=== PATIENT | female | born 1995 | race Caucasian/White ===

== ENCOUNTER 2016-11-28 07:29 | Inpatient (IN) | payer OTHER ==
[2016-11-28] MEDS ORDERED: Dinoprostone* 10 MG VAG.SUPP VAGINAL ONE (08:17)
[2016-11-29] MEDS ORDERED: Oxytocin in LR* 20 UNITS/1,000 ML BAG IVPB ONE (02:23)
[2016-11-29] MEDS ORDERED: Oxytocin in LR* 20 UNITS/1,000 ML BAG IVPB SCH ×2 (03:00→13:00)
[2016-11-29 03:03] LABS: Hematocrit 42 % (35-47); Hemoglobin 13.9 g/dl (12.0-16.0); Mean Corpuscular HGB Conc 33 g/dl (31-36); Mean Corpuscular Hemoglobin 31 pg (27-31); Mean Corpuscular Volume 94 fL (80-97); Mean Platelet Volume 12 um3 (7.4-10.4); Red Blood Count 4.47 10^6/ul (4.0-5.4); Red Cell Distribution Width 13 % (10.5-15); White Blood Count 10.4 10^3/ul (3.5-10.8)
[2016-11-29] MEDS ORDERED: Acetaminophen TAB* 325 MG PO PRN (12:15)
[2016-11-29] MEDS ORDERED: Witch Hazel PAD* JAR TOPICAL PRN (12:15)
[2016-11-29] MEDS ORDERED: Glycerin ADULT SUPP PR PRN (12:15)
[2016-11-29] MEDS ORDERED: oxyCODONE/Acetamin 5/325 MG* TAB PO PRN (12:15)
[2016-11-29] MEDS ORDERED: Dibucaine 1% 28.35 GM TUBE PR PRN (12:15)
[2016-11-29] MEDS ORDERED: Simethicone CHEW TAB* 80 MG PO SCH (12:30)
[2016-11-29] MEDS ORDERED: Misoprostol TAB* 200 MCG ONE (13:14)
[2016-11-29 13:29] LABS: Hematocrit 41 % (35-47); Hemoglobin 13.7 g/dl (12.0-16.0); Mean Corpuscular HGB Conc 34 g/dl (31-36); Mean Corpuscular Hemoglobin 32 pg (27-31); Mean Corpuscular Volume 94 fL (80-97); Mean Platelet Volume 12 um3 (7.4-10.4); Red Blood Count 4.34 10^6/ul (4.0-5.4); Red Cell Distribution Width 13 % (10.5-15)
[2016-11-29 13:53] LABS: EGFR African American 142.7 (>60)
[2016-11-29] MEDS: Heparin VIAL(*) 5000 UNITS/ML VIAL (FIVE THOUSAND) SUBCUT SCH ×2 (14:12→21:48)
[2016-11-29] MEDS: Docusate CAP* 100 MG PO SCH ×2 (14:24→21:48)
[2016-11-29] MEDS: Ibuprofen TAB* 600 MG PO PRN (21:48)
[2016-11-30 07:36] LABS: Hematocrit 37 % (35-47); Hemoglobin 12.4 g/dl (12.0-16.0); Mean Corpuscular HGB Conc 34 g/dl (31-36); Mean Corpuscular Hemoglobin 31 pg (27-31); Mean Corpuscular Volume 93 fL (80-97); Mean Platelet Volume 11 um3 (7.4-10.4); Red Blood Count 3.97 10^6/ul (4.0-5.4); Red Cell Distribution Width 14 % (10.5-15); White Blood Count 12.8 10^3/ul (3.5-10.8)
[2016-11-30] MEDS: Heparin VIAL(*) 5000 UNITS/ML VIAL (FIVE THOUSAND) SUBCUT SCH ×2 (08:59→21:19)
[2016-11-30] MEDS: Docusate CAP* 100 MG PO SCH ×3 (08:59→21:19)
[2016-11-30] MEDS: Ferrous Gluconate TAB* 324 MG TAB PO SCH ×2 (09:01→21:23)
[2016-11-30] MEDS: Ibuprofen TAB* 600 MG PO PRN (21:23)
[2016-12-01] MEDS: Heparin VIAL(*) 5000 UNITS/ML VIAL (FIVE THOUSAND) SUBCUT SCH (09:37)
[2016-12-01] MEDS: Docusate CAP* 100 MG PO SCH (09:39)
[2016-12-01] MEDS: Ferrous Gluconate TAB* 324 MG TAB PO SCH (09:41)
[2016-12-01 10:14] VITALS: BP 120/58
== END 2016-12-01 12:01 | disposition home or self-care (01) | DRG 775 ==
LOC: MCHOBOUT 07:29 → MCHOB 08:17
PROVIDERS: ADMIT Obstetrics & Gynecology; ATTEND Midwife
PROC: 10E0XZZ Delivery of Products of Conception, External Approach (ICD-10-PCS; principal; 2016-11-29)
PROC: 10907ZC Drainage of Amniotic Fluid, Therapeutic from Products of Conception, Via Natural or Artificial Opening (ICD-10-PCS; 2016-11-29)
PROC: 3E033VJ Introduction of Other Hormone into Peripheral Vein, Percutaneous Approach (ICD-10-PCS; 2016-11-29)
DX: O99.344 Other mental disorders complicating childbirth (principal); F31.9 Bipolar disorder, unspecified; Z3A.38 38 weeks gestation of pregnancy; Z37.0 Single live birth; Z86.73 Personal history of transient ischemic attack (TIA), and cerebral infarction without residual deficits; Z79.01 Long term (current) use of anticoagulants
CPT/HCPCS: 36415; 59200; 82565; 84520; 85025; 85610; 85730; 86850; 86900; 86901; A9270-GY; J1644

== ENCOUNTER 2016-12-06 14:03 | Emergency (ER) | payer OTHER ==
[2016-12-06 16:00] LABS: Hematocrit 41 % (35-47); Hemoglobin 13.6 g/dl (12.0-16.0); Mean Corpuscular HGB Conc 33 g/dl (31-36); Mean Corpuscular Hemoglobin 31 pg (27-31); Mean Corpuscular Volume 94 fL (80-97); Mean Platelet Volume 9 um3 (7.4-10.4); Red Blood Count 4.34 10^6/ul (4.0-5.4); Red Cell Distribution Width 14 % (10.5-15); White Blood Count 11.1 10^3/ul (3.5-10.8)
[2016-12-06 16:17] LABS: Albumin 3.7 g/dL (3.2-5.2); BUN/Creatinine Ratio 17.2 (8-20); C Reactive Protein 72.64 mg/L (< 5.00); Calcium 9.4 mg/dL (8.6-10.3); EGFR African American 147.9 (>60); Globulin 3.7 g/dL (2-4); Potassium 3.9 mmol/L (3.5-5.0); Total Bilirubin 0.8 mg/dL (0.2-1.0); Total Protein 7.4 g/dL (6.4-8.9)
[2016-12-06 17:06] LABS: Urine Bacteria Absent (Absent); Urine Bilirubin Negative (Negative); Urine Glucose Negative (Negative); Urine Nitrite Negative (Negative)
--- NOTE | 2016-12-06 17:36 | RAD ---
Indication: One-week , adnexal pain. Real-time sonography of the pelvis was performed. The uterus measures 14.4 x 8.3 x 9.7 cm. The endometrial echo measures up to 17 mm with echo complex material in the endometrium which may represent hemorrhage. Right ovary measures 2.4 x 1.0 x 1.8 cm. Left ovary measures 2.1 x 1.5 x 2.0 cm. IMPRESSION: Echo complex endometrium measuring up to 17 mm likely representing some hemorrhage as there is no flow detected. No adnexal masses are noted.
[2016-12-06 19:24] VITALS: BP 114/68
--- NOTE | 2016-12-06 22:23 | ED ---
Serenity Eagle Alfonso, scribed for Alberto Flores MD on 12/06/16 at 1529 . Abdominal Pain/Female - HPI Summary HPI Summary: This patient is a 21 year old F presenting to [facility] accompanied by mother and with a chief complaint of abdominal cramping since earlier today. The patient rates the pain 7/10 in severity. Symptoms aggravated by nothing. Symptoms alleviated by nothing. Patient reports fever, chills, and vaginal bleeding. Patient gave one week ago. A0. PMHx of CVA and bipolar. - History of Current Complaint Chief Complaint: EDAbdPain Stated Complaint: ABD PAIN/1WK POST Time Seen by Provider: 12/06/16 15:04 Hx Obtained From: Patient Onset/Duration: Sudden Onset, Lasting Hours - Earlier today, Still Present Timing: Constant Severity Initially: Moderate Severity Currently: Moderate Pain Intensity: 7 Pain Scale Used: 0-10 Numeric Location: Diffuse Aggravating Factor(s): Nothing Alleviating Factor(s): Nothing Associated Signs and Symptoms: Positive: Other: - fever, chills, and vaginal bleeding Allergies/Adverse Reactions: Allergies Allergy/AdvReac Type Severity Reaction Status Date / Time No Known Allergies Allergy Verified 12/06/16 17:00 PMH/Surg Hx/FS Hx/Imm Hx Neurological History: Reports: Hx CVA Psychiatric History: Reports: Other Psychiatric Issues/Disorders - Bipolar, on zoloft Infectious Disease History: Denies: Traveled Outside the [place] in Last 30 Days - Family History Known Family History: Negative: Cardiac Disease, Diabetes - Social History Alcohol Use: None Substance Use Type: Reports: None Smoking Status (MU): Never Smoked Tobacco Have You Smoked in the Last Year: No Review of Systems Positive: Fever, Chills Positive: Abdominal Pain - cramping Positive: other - Vaginal bleeding All Other Systems Reviewed And Are Negative: Yes Physical Exam Triage Information Reviewed: Yes Vital Signs On Initial Exam: Initial Vitals Temp Pulse Resp BP Pulse Ox 98.6 F 90 20 125/75 98 12/06/16 14:12 12/06/16 14:12 12/06/16 14:12 12/06/16 14:12 12/06/16 14:12 Vital Signs Reviewed: Yes Appearance: Positive: Well-Appearing, No Pain Distress Skin: Positive: Warm, Skin Color Reflects Adequate Perfusion, Dry Head/Face: Positive: Normal Head/Face Inspection Eyes: Positive: Normal ENT: Positive: Normal ENT inspection Neck: Positive: Supple, Nontender Respiratory/Lung Sounds: Positive: Clear to Auscultation, Breath Sounds Present Cardiovascular: Positive: RRR Abdomen Description: Positive: Soft, Other: - Bilateral lower quadrant tenderness with mild rebound Bowel Sounds: Positive: Present Musculoskeletal: Positive: Normal Neurological: Positive: Normal, Sensory/Motor Intact, Alert, Oriented to Person Place, Time, CN Intact II-III Psychiatric: Positive: Affect/Mood Appropriate Diagnostics - Vital Signs Vital Signs Temp Pulse Resp BP Pulse Ox 12/06/16 14:12 98.6 F 90 20 125/75 98 - Laboratory Lab Results: Lab Results 12/06/16 12/06/16 12/06/16 Range/Units 15:52 15:52 15:52 WBC 11.1 H (3.5-10.8) 10^3/ul RBC 4.34 (4.0-5.4) 10^6/ul Hgb 13.6 (12.0-16.0) g/dl Hct 41 (35-47) % MCV 94 (80-97) fL MCH 31 (27-31) pg MCHC 33 (31-36) g/dl RDW 14 (10.5-15) % Plt Count 275 (150-450) 10^3/ul MPV 9 (7.4-10.4) um3 Neut % (Auto) 64.8 (38-83) % Lymph % (Auto) 23.2 L (25-47) % [place] % (Auto) 7.2 (1-9) % Eos % (Auto) 3.8 (0-6) % Baso % (Auto) 1.0 (0-2) % Absolute Neuts (auto) 7.2 (1.5-7.7) 10^3/ul Absolute Lymphs (auto) 2.6 (1.0-4.8) 10^3/ul Absolute Monos (auto) 0.8 (0-0.8) 10^3/ul Absolute Eos (auto) 0.4 (0-0.6) 10^3/ul Absolute Basos (auto) 0.1 (0-0.2) 10^3/ul Absolute Nucleated RBC 0 10^3/ul Nucleated RBC % 0 INR (Anticoag Therapy) (0.89-1.11) Sodium 137 (133-145) mmol/L Potassium 3.9 (3.5-5.0) mmol/L Chloride 102 (101-111) mmol/L Carbon Dioxide 24 (22-32) mmol/L Anion Gap 11 (2-11) mmol/L BUN 11 (6-24) mg/dL Creatinine 0.64 (0.51-0.95) mg/dL Est GFR ( Amer) 147.9 (>60) Est GFR (Non-Af Amer) 115.0 (>60) BUN/Creatinine Ratio 17.2 (8-20) Glucose 73 (70-100) mg/dL Lactic Acid 0.9 (0.5-2.0) mmol/L Calcium 9.4 (8.6-10.3) mg/dL Total Bilirubin 0.80 (0.2-1.0) mg/dL AST 14 (13-39) U/L ALT 21 (7-52) U/L Alkaline Phosphatase 106 H (34-104) U/L C-Reactive Protein 72.64 H (< 5.00) mg/L Total Protein 7.4 (6.4-8.9) g/dL Albumin 3.7 (3.2-5.2) g/dL Globulin 3.7 (2-4) g/dL Albumin/Globulin Ratio 1.0 (1-3) Lipase 13 (11.0-82.0) U/L Urine Color Urine Appearance Urine pH (5-9) Ur Specific [place] (1.010-1.030) Urine Protein (Negative) Urine Ketones (Negative) Urine Blood (Negative) Urine Nitrate (Negative) Urine Bilirubin (Negative) Urine Urobilinogen (Negative) Ur Leukocyte Esterase (Negative) Urine WBC (Auto) (Absent) Urine RBC (Auto) (Absent) Ur Squamous Epith Cells (Absent) Urine Bacteria (Absent) Urine Glucose (Negative) 12/06/16 12/06/16 Range/Units 15:52 16:52 WBC (3.5-10.8) 10^3/ul RBC (4.0-5.4) 10^6/ul Hgb (12.0-16.0) g/dl Hct (35-47) % MCV (80-97) fL MCH (27-31) pg MCHC (31-36) g/dl RDW (10.5-15) % Plt Count (150-450) 10^3/ul MPV (7.4-10.4) um3 Neut % (Auto) (38-83) % Lymph % (Auto) (25-47) % [place] % (Auto) (1-9) % Eos % (Auto) (0-6) % Baso % (Auto) (0-2) % Absolute Neuts (auto) (1.5-7.7) 10^3/ul Absolute Lymphs (auto) (1.0-4.8) 10^3/ul Absolute Monos (auto) (0-0.8) 10^3/ul Absolute Eos (auto) (0-0.6) 10^3/ul Absolute Basos (auto) (0-0.2) 10^3/ul Absolute Nucleated RBC 10^3/ul Nucleated RBC % INR (Anticoag Therapy) 0.91 (0.89-1.11) Sodium (133-145) mmol/L Potassium (3.5-5.0) mmol/L Chloride (101-111) mmol/L Carbon Dioxide (22-32) mmol/L Anion Gap (2-11) mmol/L BUN (6-24) mg/dL Creatinine (0.51-0.95) mg/dL Est GFR ( Amer) (>60) Est GFR (Non-Af Amer) (>60) BUN/Creatinine Ratio (8-20) Glucose (70-100) mg/dL Lactic Acid (0.5-2.0) mmol/L Calcium (8.6-10.3) mg/dL Total Bilirubin (0.2-1.0) mg/dL AST (13-39) U/L ALT (7-52) U/L Alkaline Phosphatase (34-104) U/L C-Reactive Protein (< 5.00) mg/L Total Protein (6.4-8.9) g/dL Albumin (3.2-5.2) g/dL Globulin (2-4) g/dL Albumin/Globulin Ratio (1-3) Lipase (11.0-82.0) U/L Urine Color Yellow Urine Appearance Cloudy Urine pH 6.0 (5-9) Ur Specific [place] 1.023 (1.010-1.030) Urine Protein 1+(30 mg/dl) H (Negative) Urine Ketones Negative (Negative) Urine Blood 3+ H (Negative) Urine Nitrate Negative (Negative) Urine Bilirubin Negative (Negative) Urine Urobilinogen Negative (Negative) Ur Leukocyte Esterase 3+ H (Negative) Urine WBC (Auto) 3+(>20/hpf) H (Absent) Urine RBC (Auto) 3+(>10/hpf) H (Absent) Ur Squamous Epith Cells Present H (Absent) Urine Bacteria Absent (Absent) Urine Glucose Negative (Negative) Result Diagrams: 12/06/16 15:52 12/06/16 15:52 Lab Statement: Any lab studies that have been ordered have been reviewed, and results considered in the medical decision making process. - Additional Comments Diagnostic Additional Comments: US pelvic reveals, per radiologist, Echo complex endometrium measuring up to 17 mm likely representing some hemorrhage as there is no flow detected. No adnexal masses are noted. ED physician has reviewed this radiology report and agrees. Abdominal Pain Fem Course/Dx - Course Course Of Treatment: Ms. Morrison presented one week with low abdominal pain. She was found to have no leukocytosis and her U/S was WNL. - Diagnoses Provider Diagnoses: pain - Provider Notifications Discussed Care Of Patient With: Kash Nathan Time Discussed With Above Provider: 19:05 Instructed by Provider To: Other - Consulted Dr. Nathan (OBGYN) who recommends outpatient follow up. Discharge - Discharge Plan Condition: Stable Disposition: HOME Patient Education Materials: Bleeding (ED) Referrals: Kash Nathan MD [Medical Doctor] - 1 Week Heavenly Mcrae DO [Primary Care Provider] - 1 Week The documentation as recorded by the Serenity pruett Alfonso accurately reflects the service I personally performed and the decisions made by me, Alberto Flores MD.
== END 2016-12-06 19:24 | disposition home or self-care (01) ==
LOC: ED 14:03
DX: O90.89 Other complications of the puerperium, not elsewhere classified (principal); R10.30 Lower abdominal pain, unspecified; Z86.73 Personal history of transient ischemic attack (TIA), and cerebral infarction without residual deficits; F31.9 Bipolar disorder, unspecified
CPT/HCPCS: 36415; 76856; 80053; 81003; 81015; 83605; 83690; 85025; 85610; 86140; 87040; 87086; 99282

== ENCOUNTER 2017-01-30 21:02 | Emergency (ER) | payer OTHER ==
--- NOTE | 2017-01-30 21:39 | RAD ---
INDICATION: Headaches. COMPARISON: None TECHNIQUE: Noncontrast axial source images were acquired from the skull base to the vertex. FINDINGS: Ventricles/sulci: The ventricles and cisterns are normal in size and configuration for age. Brain parenchyma: There is no focal parenchymal finding, evidence of intracranial mass, or intracranial mass effect. Intracranial hemorrhage:None. Extra-axial spaces: There are no abnormal extra axial fluid collections or evidence of extra-axial mass. Calvarium: There is no calvarial fracture or other calvarial abnormality. Scalp: There is no evidence of scalp or extracalvarial soft tissue abnormality. Paranasal sinuses/mastoid: The paranasal sinuses and mastoid air cells are clear. Other: None. IMPRESSION: NEGATIVE EXAMINATION
[2017-01-30 22:03] LABS: Hematocrit 44 % (35-47); Hemoglobin 14.6 g/dl (12.0-16.0); Mean Corpuscular HGB Conc 33 g/dl (31-36); Mean Corpuscular Hemoglobin 30 pg (27-31); Mean Corpuscular Volume 91 fL (80-97); Mean Platelet Volume 9 um3 (7.4-10.4); Red Blood Count 4.81 10^6/ul (4.0-5.4); Red Cell Distribution Width 13 % (10.5-15); White Blood Count 10.7 10^3/ul (3.5-10.8)
[2017-01-30 22:16] LABS: Albumin 4.3 g/dL (3.2-5.2); BUN/Creatinine Ratio 21.3 (8-20); Calcium 9.6 mg/dL (8.6-10.3); EGFR African American 114.3 (>60); EGFR Non-African American 88.9 (>60); Globulin 2.9 g/dL (2-4); Potassium 3.6 mmol/L (3.5-5.0); Total Bilirubin 0.4 mg/dL (0.2-1.0); Total Protein 7.2 g/dL (6.4-8.9)
[2017-01-30 23:25] LABS: Urine Bacteria Absent (Absent); Urine Bilirubin Negative (Negative); Urine Glucose Negative (Negative); Urine Nitrite Negative (Negative)
[2017-01-30 23:40] VITALS: BP 134/70
== END 2017-01-30 23:41 | disposition left against medical advice (07) ==
LOC: ED 21:02
DX: R51 Headache (principal); Z53.21 Procedure and treatment not carried out due to patient leaving prior to being seen by health care provider
CPT/HCPCS: 36415; 70450; 80053; 81003; 81015; 85025; 85610; 85730; 87086; 93005